=== PATIENT | female | born 1980 | race Caucasian/White ===

== ENCOUNTER 2017-05-12 15:14 | Inpatient (IN) | payer OTHER ==
[~2017-05-12] VITALS: Ht 160 cm; Wt 87.3 kg
[~2017-05-12 15:14] MED LIST: ENDOCET 5-3251 EACH PO; MOTRIN800 MG PO
[2017-05-12 15:42] VITALS: BP 127/69
[2017-05-12 17:15] LABS: EOSINOPHIL (%) 0.4 % (0-5); EOSINOPHIL COUNT 0.1 K/uL (0-0.3); HEMATOCRIT 38.1 % (36.0-46.0); IMMATURE GRANULOCYTE (%) 0.8 % (0.0-0.7); IMMATURE GRANULOCYTE COUNT 0.1 K/uL; INSTRUMENT ABS NEUTROPHIL CT 9.3 K/uL; LYMPHOCYTE COUNT 2.1 K/uL (1.0-2.8); MCH 29.8 PG (29.0-34.0); MCHC 33.6 G/DL (30.0-36.0); MCV 88.8 FL (83-99); MONOCYTE (%) 4.7 % (3-12); MONOCYTE COUNT 0.6 K/uL (0-0.8); NEUTROPHIL (%) 76.4 % (45-76); NEUTROPHIL COUNT 9.3 K/uL (1.8-6.4); PLATELET COUNT 205 K/uL (156-360); RBC DIS.WIDTH-CV 13.6 % (11.8-14.6); RBC DIS.WIDTH-SD 43.7 % (39-53); RED BLOOD COUNT 4.29 M/uL (3.80-5.20); WHITE BLOOD COUNT 12.2 K/uL (4.1-10.2)
[2017-05-12 18:34] VITALS: BP 118/64
[2017-05-12 19:15] VITALS: BP 128/62
[2017-05-12 20:20] VITALS: BP 110/63
[2017-05-12 21:52] VITALS: BP 116/61
[2017-05-12 23:27] VITALS: BP 133/70
[2017-05-13] VITALS (21 sets, daily range): BP systolic 98–130; BP diastolic 54–81
== END 2017-05-14 12:41 | disposition home or self-care (01) | DRG 775 ==
LOC: LDRP-OP 15:14 → 2WEST 15:15 → LDRP-OP 06-28 10:07
PROVIDERS: Obstetrics & Gynecology Gynecology
PROC: 3E0S3CZ (ICD-10-PCS; principal; 2017-05-12)
PROC: 00HU33Z Insertion of Infusion Device into Spinal Canal, Percutaneous Approach (ICD-10-PCS; principal; 2017-05-12)
PROC: 3E033VJ Introduction of Other Hormone into Peripheral Vein, Percutaneous Approach (ICD-10-PCS; principal; 2017-05-12)
PROC: 10E0XZZ Delivery of Products of Conception, External Approach (ICD-10-PCS; principal; 2017-05-12)
DX: O42.92 Full-term premature rupture of membranes, unspecified as to length of time between rupture and onset of labor (principal); O63.9 Long labor, unspecified; Z3A.37 37 weeks gestation of pregnancy; Z3A.38 38 weeks gestation of pregnancy; Z37.0 Single live birth
CPT/HCPCS: 85025; 86900; 86901; C1755; G0378; J3010; J7120